=== PATIENT | female | born 1940 | race Caucasian/White ===

== ENCOUNTER → 2017-10-01 | Outpatient (CLI) | payer OTHER, BC | LOC: MRI 13:26 | DX: M47.896 Other spondylosis, lumbar region (principal); M48.061 Spinal stenosis, lumbar region without neurogenic claudication ==

== ENCOUNTER → 2020-05-25 | Outpatient (CLI) | payer OTHER, BC ==
[~2020-05-25] MED LIST: ALDACTONE25 MG PO; ASPIR 8181 M1 PO; CARVEDILOL3.125 MG PO; IBUPROFEN 600600 M1 PO; NORVASC10 MG PO
== END ==
LOC: SJCVC 15:55
PROVIDERS: ATTEND Internal Medicine Cardiovascular Disease
DX: R00.1 Bradycardia, unspecified (principal); I12.9 Hypertensive chronic kidney disease with stage 1 through stage 4 chronic kidney disease, or unspecified chronic kidney disease; N18.9 Chronic kidney disease, unspecified; E78.5 Hyperlipidemia, unspecified; E78.00 Pure hypercholesterolemia, unspecified; R93.1 Abnormal findings on diagnostic imaging of heart and coronary circulation; K21.9 Gastro-esophageal reflux disease without esophagitis; Z79.82 Long term (current) use of aspirin; Z79.899 Other long term (current) drug therapy

== ENCOUNTER → 2021-03-29 | Outpatient (CLI) | payer OTHER, BC | LOC: SJCVCIMAG 13:54 | PROVIDERS: ATTEND Internal Medicine Cardiovascular Disease | DX: I35.8 Other nonrheumatic aortic valve disorders (principal); I27.20 Pulmonary hypertension, unspecified; R06.00 Dyspnea, unspecified; I10 Essential (primary) hypertension ==

== ENCOUNTER → 2021-05-30 | Outpatient (CLI) | payer OTHER, BC | LOC: SJCVC 10:43 | PROVIDERS: ATTEND Internal Medicine Cardiovascular Disease | DX: R93.1 Abnormal findings on diagnostic imaging of heart and coronary circulation (principal); E78.00 Pure hypercholesterolemia, unspecified; R00.1 Bradycardia, unspecified; I25.10 Atherosclerotic heart disease of native coronary artery without angina pectoris; I12.9 Hypertensive chronic kidney disease with stage 1 through stage 4 chronic kidney disease, or unspecified chronic kidney disease; K21.9 Gastro-esophageal reflux disease without esophagitis; E78.5 Hyperlipidemia, unspecified; Z79.899 Other long term (current) drug therapy; Z79.82 Long term (current) use of aspirin; Z88.1 Allergy status to other antibiotic agents ==

== ENCOUNTER → 2021-05-30 | Outpatient (CLI) | payer OTHER | LOC: CAT 11:51 | PROVIDERS: ATTEND Internal Medicine Cardiovascular Disease | DX: Z13.6 Encounter for screening for cardiovascular disorders (principal); E78.00 Pure hypercholesterolemia, unspecified; I25.10 Atherosclerotic heart disease of native coronary artery without angina pectoris ==